=== PATIENT | female | born 1975 ===

== ENCOUNTER 2023-05-11 11:52 | Emergency (ER) | payer MEDICAID ==
[2023-05-11] MEDS: LORazepam 2 MG/ML SDV IVPUSH ONE (12:21)
[2023-05-11 12:27] LABS: BASOPHILS ABSOLUTE AUTO 0.03 K/uL (0.02-0.10); BASOPHILS PERCENT AUTO 0.3 % (0.0-0.5); EOSINOPHILS ABSOLUTE AUTO 0.06 K/uL (0.04-0.40); EOSINOPHILS PERCENT AUTO 0.7 % (1.0-5.0); HEMOGLOBIN 14.8 g/dL (11.5-16.5); LYMPHOCYTES ABSOLUTE AUTO 1.26 K/uL (1.50-4.00); LYMPHOCYTES PERCENT AUTO 13.9 % (20.0-40.0); MEAN CORPUSCULAR HEMOGLOBIN 30.8 pg (27.0-32.0); MEAN CORPUSCULAR HGB CONC 34.4 g/dL (31.0-35.0); MEAN CORPUSCULAR VOLUME 90 fL (76-96); MONOCYTES PERCENT AUTO 6.6 % (3.0-10.0); NEUTROPHILS ABSOLUTE AUTO 7.13 K/uL (2.00-7.50); NEUTROPHILS PERCENT AUTO 78.5 % (45.0-70.0); PLATELET COUNT,PLT 372 K/uL (150-500); WHITE BLOOD CELL COUNT,WBC 9.1 K/uL (4.0-11.0)
[2023-05-11] MEDS: Sodium Chloride 0.9% 1,000 ML IV ONE (12:28)
[2023-05-11] MEDS: LORazepam 2 MG/ML SDV ONE (12:29)
[2023-05-11 12:55] LABS: A/G RATIO 0.9 (0.8-2.0); ALANINE AMINOTRANSFERASE,ALT 22 U/L (12-78); ALBUMIN 3.6 g/dL (3.4-5.0); ALKALINE PHOSPHATASE 98 U/L (46-116); ASPARTATE AMNIOTRANSFERASE,AST 25 U/L (15-37); BILIRUBIN TOTAL 0.4 mg/dL (0.0-1.0); BLOOD UREA NITROGEN,BUN 11 mg/dL (8-26); BUN/CREATININE RATIO 7.7 (6-25); CALCIUM 9.3 mg/dL (8.5-10.1); CARBON DIOXIDE,CO2 27.6 mmol/L (21.0-32.0); CHLORIDE,CL 98 mmol/L (98-107); CREATININE 1.43 mg/dL (0.55-1.02); EST CRCL DRUG DOSING (CG) 49.06 mL/min; ESTIMATED GFR 46 mL/min (>60); GLUCOSE RANDOM 111 mg/dL (74-100); PROTEIN TOTAL,TP 7.4 g/dL (6.4-8.2); SODIUM,NA 140 mmol/L (136-145)
[2023-05-11 12:57] LABS: ANION GAP 17.2 mmol/L (5.0-15.0); POTASSIUM,K 2.8 mmol/L (3.5-5.1)
[2023-05-11 12:58] LABS: ETHANOL BLOOD MEDICAL < 3.0 mg/dL (<3.0)
[2023-05-11] MEDS: Potassium Chloride 20 MEQ Tab.ER PO ONE (13:16)
[2023-05-11] MEDS: NS + KCl 20mEq/L 1,000 ML IV SCH (13:23)
[2023-05-11 13:24] LABS: APPEARANCE,URINE CLEAR (CLEAR); BILIRUBIN,URINE SMALL (NEGATIVE); COLOR,URINE YELLOW; GLUCOSE,URINE NEGATIVE (NEGATIVE); KETONES,URINE NEGATIVE (NEGATIVE); LEUKOCYTE ESTERASE,URINE NEGATIVE (NEGATIVE); NITRITE,URINE NEGATIVE (NEGATIVE); OCCULT BLOOD,URINE NEGATIVE (NEGATIVE); PH,URINE 6.5 (5.0-8.0); PROTEIN,URINE 100 mg/dL (NEGATIVE); UROBILINOGEN,URINE 0.2 E.U./dL (0.2-1.0)
[2023-05-11 13:35] LABS: RBC,URINE 0-5 /HPF; SQUAMOUS EPITHELIAL CELLS,UR MODERATE /HPF; WBC,URINE 0-5 /HPF
[2023-05-11 13:36] LABS: AMPHETAMINES SCREEN, URINE POSITIVE (NEGATIVE); BACTERIA,URINE MODERATE /HPF
[2023-05-11 13:37] LABS: BARBITURATE SCREEN,URINE NEGATIVE (NEGATIVE); BENZODIAZEPINES SCREEN,URINE NEGATIVE (NEGATIVE); METHADONE SCREEN, URINE NEGATIVE (NEGATIVE); OXYCODONE SCREEN,URINE NEGATIVE (NEGATIVE); THC SCREEN,URINE 50 NG/ML POSITIVE (NEGATIVE)
[2023-05-11 13:38] LABS: METHAMPHETAMINES SCREEN, URINE POSITIVE (NEGATIVE)
== END 2023-05-11 15:50 | disposition home or self-care (01) ==
LOC: LB.ED 11:52
DX: F15.10 Other stimulant abuse, uncomplicated (principal); F16.10 Hallucinogen abuse, uncomplicated; I10 Essential (primary) hypertension; Z79.899 Other long term (current) drug therapy
CPT/HCPCS: 36415; 80053; 80307; 81001; 84443; 85025; 96361; 96365; 96366; 96375; 99284-25; A9270-GY; J2060; J3480; J7030